=== PATIENT | female | born 1995 | race Caucasian/White ===

== ENCOUNTER 2019-11-10 13:19 | Emergency (ER) | payer BC ==
[~2019-11-10] VITALS: Ht 149.9 cm; Wt 81.8 kg
[2019-11-10 13:35] VITALS: BP 128/78; TEMP 98.1
[2019-11-10] MEDS ORDERED: AMOXICILLIN 8751 TAB PO (14:17)
[2019-11-10 14:59] VITALS: PULSE 96
== END 2019-11-10 14:59 | disposition home or self-care (01) ==
LOC: COL.ER 13:19
DX: K04.7 Periapical abscess without sinus (principal)